=== PATIENT | male | born 1945 | race Caucasian/White ===

== ENCOUNTER 2016-09-23 06:23 | Day surgery (SDC) | payer MEDICARE, OTHER ==
--- NOTE | ~2016-09-23 | EGD ---
EGD REPORT [facility] [address] [place] [address] NAME: CORBIN GARCIA : [birth year] STATUS : REG [facility]#: [id number] AGE: 70 ADM/REG DATE : 09/23/16 MR#: [id number] REPORT SERV DATE: 09/23/16 DICTATED BY: NEVAEH KELLER DATE: 09/23/16 REPORT STATUS : Draft TRANSCRIBED BY: [employer] DATE: 09/23/16 [facility] Center Patient Name: Corbin Garcia Date of : 1945 Attending MD: NEVAEH KELLER MD Procedure Date No Time: 09/23/2016 Procedure: Colonoscopy Indications: Screening for colorectal malignant neoplasm, This is the patient's first colonoscopy Referring MD: YARELI STEEL Medicines: See the Anesthesia note for documentation of the administered medications Complications: No immediate complications. Procedure: Pre-Anesthesia Assessment: - ASA Grade Assessment: III - A patient with severe systemic disease. After I obtained informed consent, the scope was passed under direct vision. Throughout the procedure, the patient's blood pressure, pulse, and oxygen saturations were monitored continuously. The [facility] [id number] was introduced through the anus and advanced to the terminal ileum, with identification of the appendiceal orifice and IC valve. The colonoscopy was performed without difficulty. The patient tolerated the procedure well. The quality of the bowel preparation was adequate. Findings: The perianal and digital rectal examinations were normal. Diverticula were found in the entire colon. Internal hemorrhoids were found during retroflexion and were small. Impression: - Diverticulosis in the entire examined colon. - Internal hemorrhoids. Recommendation: - Patient has a contact number available for emergencies. The signs and symptoms of potential delayed complications were discussed with the patient. Return to normal activities tomorrow. Written discharge instructions were provided to the patient. - Regular diet. - Continue present medications. - Repeat colonoscopy in 10 years for screening purposes. - Repeat colonoscopy in 10 years. IF develop symptoms like bleeding or diarrhea, or Family history of colon cancer or polyps before age 60, you could require sooner EGD REPORT [address] [address] NAME: CORBIN GARCIA : [birth year] STATUS : REG [facility]#: [id number] AGE: 70 ADM/REG DATE : 09/23/16 MR#: [id number] REPORT SERV DATE: 09/23/16 DICTATED BY: NEVAEH KELLER DATE: 09/23/16 REPORT STATUS : Draft TRANSCRIBED BY: [employer] DATE: 09/23/16 colonoscopy Procedure Code(s): --- Professional --- 49326, Colonoscopy, flexible, proximal to splenic flexure; diagnostic, with or without collection of specimen(s) by brushing or washing, with or without colon decompression (separate procedure) Diagnosis Code(s): --- Professional --- K64.8, Other hemorrhoids K57.30, Diverticulosis of large intestine without perforation or abscess without bleeding Z12.11, Encounter for screening for malignant neoplasm of colon CPT copyright 2013 [employer]. All rights reserved. The codes documented in this report are preliminary and upon auditing coder review may be revised to meet current compliance requirements. Nevaeh Keller MD NEVAEH KELLER MD 09/23/2016 9:35 AM This report has been signed electronically. Number of Addenda: 0 Note Initiated On: 09/23/2016 7:48 AM Scope Withdrawal Time 0 hours 6 minutes 43 seconds [address] [address]
[~2016-09-23 06:23] MED LIST: ASA5GR PO; ASAB PO; COQ; COREG3 PO; COZ25 PO; LIPITOR40 PO; PAXIL40 MG PO; VYTORIN 10/80 T1 TAB PO; [UNRECOGNIZED DRUG - OTHER]
== END 2016-09-23 23:59 | disposition home health service (06) ==
LOC: DMU 06:23
PROVIDERS: Internal Medicine Gastroenterology
PROC: 0DJD8ZZ Inspection of Lower Intestinal Tract, Via Natural or Artificial Opening Endoscopic (ICD-10-PCS; principal; 2016-09-23 08:00)
DX: Z12.11 Encounter for screening for malignant neoplasm of colon (principal); K64.8 Other hemorrhoids; K57.30 Diverticulosis of large intestine without perforation or abscess without bleeding; K21.9 Gastro-esophageal reflux disease without esophagitis; I25.2 Old myocardial infarction; M19.90 Unspecified osteoarthritis, unspecified site; E78.00 Pure hypercholesterolemia, unspecified; Z95.1 Presence of aortocoronary bypass graft; Z79.82 Long term (current) use of aspirin; Z79.899 Other long term (current) drug therapy; Z87.891 Personal history of nicotine dependence; Z98.890 Other specified postprocedural states